=== PATIENT | female | born 1960 | race Caucasian/White ===

== ENCOUNTER → 2023-11-21 | Outpatient (CLI) | payer MEDICARE, SELFPAY ==
--- NOTE | 2023-11-21 | EMB_PTH ---
PATIENT: JAQUAN QUINTANA [facility][id number] AGE/SX: 63/F ROOM: RE11/21/[address]: ALEX Knight : 1960 BED: DIS: 11/21/2023 SPEC #: [id number] RECD: 11/21/23 14:58 STATUS: JUS RELorenzo #: [id number] SARA: 11/21/23 00:[address]: Kate Ng NP DEPT: SURGICAL PATHOLOGY RECD BY: Ortiz Joseph ENTERED: 11/22/23 10:11 SP TYPE: ENDOM BX/C BLANCA DR: ALEX Slaughter Tissues: Endometrium, NOS Procedures: Surgery Specimen Level IV HEADER OPERATION: Endometrial biopsy PRE-OP DIAGNOSIS: Abnormal uterine bleeding TISSUE SUBMITTED: Endometrial lining MICROSCOPIC DIAGNOSIS Endometrial biopsy: Strips of benign endometrial epithelium and superficial fragments of benign endometrial tissue. Fragments of benign cervical epithelium and mucous. See comment. PAMELA/ 11/23/2023 COMMENT Clinical correlation and appropriate follow up are necessary. MICROSCOPIC DESCRIPTION Slides are reviewed. GROSS DESCRIPTION Received is one container labeled with the patient's name and not further designated. The specimen consists of multiple irregular fragments of murdock mucoid tissue that in aggregate measure 2.5 x 1.0 x 0.1 cm. The specimen is totally submitted in one cassette. PAMELA/ 11/22/2023 TC:4 CPT:54086
== END | disposition home or self-care (01) ==
LOC: LABSPEC 15:02
PROVIDERS: PCP Nurse Practitioner Primary Care; Referring Provider Nurse Practitioner Women's Health; Visit Provider Nurse Practitioner Women's Health
DX: Z12.4 Encounter for screening for malignant neoplasm of cervix (principal)
CPT/HCPCS: 87624; 88175; 88305; G0145

== ENCOUNTER → 2023-12-08 | Outpatient (CLI) | payer MEDICARE, SELFPAY ==
--- NOTE | 2023-12-08 12:21 | US_ITS ---
EXAM: US PELVIS TRANSABDOMINAL LIMITED AND TRANSVAGINAL CLINICAL INDICATION: bleeding -- post menopausal TECHNIQUE: Transabdominal (limited) and transvaginal pelvic ultrasound was performed with grayscale and color Doppler imaging. Transvaginal imaging was used for better evaluation of the endometrium and adnexa. COMPARISON: No relevant prior studies available. FINDINGS: UTERUS/CERVIX: The uterus measures 10.8 x 8.0 x 5.9 cm. The endometrium measures 1.5 cm. There is a 1 cm cyst in the cervix compatible with an. Anteverted. There is no uterine mass. RIGHT OVARY: Right ovary is not visualized. LEFT OVARY: Left ovary is not visualized. FREE FLUID: None. BLADDER: The bladder measures 9.2 x 8.4 x 6.2 cm for volume of 252 mL. US/Pelvic (Non ) IMPRESSION: 1. Thickened endometrium. If indicated further evaluation with MRI may be beneficial. 2. Nabothian cyst. Electronically Signed: Keanu Montalvo MD at 23:43 EDT ,
== END | disposition home or self-care (01) ==
LOC: US 12:21
PROVIDERS: PCP Nurse Practitioner Primary Care; Referring Provider Nurse Practitioner Women's Health; Visit Provider Nurse Practitioner Women's Health
DX: N95.0 Postmenopausal bleeding (principal)
CPT/HCPCS: 76830; 76856

== ENCOUNTER → 2023-12-20 | Outpatient (CLI) | payer MEDICARE, OTHER, SELFPAY ==
--- NOTE | 2023-12-20 13:04 | MRI_ITS ---
EXAM: MR PELVIS WITHOUT AND WITH INTRAVENOUS CONTRAST CLINICAL INDICATION: abnormal US, thickened endometrium, nabothian cyst TECHNIQUE: Multiplanar and multisequence MR images of the pelvis without and with intravenous contrast. CONTRAST: 30CC COMPARISON: No relevant prior studies available. FINDINGS: INTRAPERITONEAL SPACE: Normal. No ascites or other fluid collection. BLADDER: Normal. OVARIES: Left ovary measures 2.7 x 1.4 cm. Right ovary measures 2.3 x 1.5 cm. UTERUS/CERVIX: Uterus is enlarged measuring 12 x 8 x 6 cm. Multiple nabothian cysts. Heterogeneous signal intensity throughout the myometrium suggestive of multiple small subcentimeter fibroids. Endometrial thickness is 19 mm. Without discrete evidence of an endometrial mass. BONES/JOINTS: Normal. SOFT TISSUES: Normal. No pelvic wall hernia. LYMPH NODES: Normal. No enlarged lymph nodes. MRI/Pelvis W/WO Contrast IMPRESSION: 1. Enlarged uterus containing small fibroids. 2. Thickened endometrium which may represent hyperplasia. Endometrial tissue sampling recommended if clinically warranted. Electronically Signed: James Simpson MD at 10:40 EDT ,
[2023-12-20 13:39] LABS: CREATININE FINGERSTICK < 1.0 mg/dL (0.55-1.02); EGFR FINGERSTICK > 60.0000 mL/min (>60)
== END | disposition home or self-care (01) ==
PROVIDERS: PCP Nurse Practitioner Primary Care; Referring Provider Obstetrics & Gynecology; Visit Provider Obstetrics & Gynecology
DX: R93.89 Abnormal findings on diagnostic imaging of other specified body structures (principal); N88.8 Other specified noninflammatory disorders of cervix uteri
CPT/HCPCS: 72197; A9575

== ENCOUNTER → 2024-11-21 | Outpatient (CLI) | payer MEDICARE, OTHER, SELFPAY ==
[2024-11-21 12:25] LABS: Absolute Lymphocyte Count 2.45 X10^3/uL (0.83-4.51); Absolute Neutrophil Count 5.4 X10^3/uL (2.0-7.7); Basophil# 0.09 X10^3/uL; Eosinophil# 0.33 X10^3/uL; Eosinophils% 3.6 % (0-5); Hematocrit 39.3 % (37-47); Hemoglobin 12.5 g/dL (12.0-15.0); Lymphocyte # 2.45 X10^3/ul (0.83-4.51); Lymphocyte % 26.9 % (19-41); Mean Corp Hgb Conc 31.8 g/dL (32-36); Mean Corpuscular Hgb 30.4 pg (27.0-32.0); Mean Corpuscular Volume 95.6 fL (81-99); Mean Platelet Vol. 11.4 fl (6.2-12.0); Monocyte# 0.78 X10^3/uL; Monocyte% 8.6 % (0-10); NRBC Flagged by Analyzer 0 % (0-5); Neutrophil # 5.39 X10^3/uL (2.7-7.7); Neutrophil % 59.2 % (47-70); Platelet Count 272 K/mm3 (150-450); RBC Distribution Width CV 14.1 % (11.6-14.6); RBC Distribution Width SD 49.5 fl (35.1-43.9); Red Blood Count 4.11 M/mm3 (4.2-5.4); White Blood Count 9.1 K/mm3 (4.4-11.0)
== END | disposition home or self-care (01) ==
PROVIDERS: PCP Nurse Practitioner Primary Care; Referring Provider Obstetrics & Gynecology; Visit Provider Obstetrics & Gynecology
DX: N93.9 Abnormal uterine and vaginal bleeding, unspecified (principal); I48.91 Unspecified atrial fibrillation; N95.0 Postmenopausal bleeding
CPT/HCPCS: 36415; 84443; 85025; 86850; 86900; 86901

== ENCOUNTER → 2024-11-22 | Outpatient (CLI) | payer MEDICARE, OTHER, SELFPAY ==
--- NOTE | 2024-11-22 14:31 | US_ITS ---
PROCEDURE: PELVIC W/ TRANSVAGINAL 11/22/2024 REASON FOR EXAM: Abnormal uterine bleeding. TECHNIQUE: Transvaginal and transabdominal grayscale and color flow imaging. COMPARISON: No relevant prior. FINDINGS: Measurements: Uterus: 13.2 x 6.3 x 7.3 cm with a volume of 315.3 mL Endometrial Thickness: 3.5 cm. Right Ovary: Not visualized.. Left Ovary: Not visualized.. Uterus: Heterogeneous texture. Uterus is anteverted. Endometrium: Heterogeneous. Right ovary: No adnexal masses. Left ovary: No adnexal masses. Other: No free fluid in the cul-de-sac. US/Pelvic w/ Transvaginal IMPRESSION: 1. Enlarged heterogeneous uterus. 2. Prominent heterogeneous endometrium. Differential possibilities include en dometrial hyperplasia and carcinoma. Reading Location: [facility]
== END | disposition home or self-care (01) ==
LOC: US 14:31
PROVIDERS: PCP Nurse Practitioner Primary Care; Referring Provider Obstetrics & Gynecology; Visit Provider Obstetrics & Gynecology
DX: R93.89 Abnormal findings on diagnostic imaging of other specified body structures (principal); N95.0 Postmenopausal bleeding; N93.9 Abnormal uterine and vaginal bleeding, unspecified
CPT/HCPCS: 76830; 76856